=== PATIENT | male | born 1985 | race Caucasian/White ===

== ENCOUNTER 2019-08-03 09:15 | Emergency (ER) | payer SELFPAY ==
[~2019-08-03] VITALS: Ht 175 cm; Wt 84.0 kg
[2019-08-03 09:20] VITALS: BP 143/94
--- OUTSIDE RECORDS SUMMARY | 2019-08-03 09:21 | XMS REPORT | Continuity of Care Document ---
Author Organization Unknown Address Unknown Phone Unavailable Allergies Active Description Code Type Severity Reaction Onset Reported/Identified Relationship to Patient Clinical Status Yes NO KNOWN DRUG ALLERGIES UNKNOWN NO KNOWN DRUG ALLERG Medications Medication Packaging Start Date St op Date Route Dosage Sig KETOROLAC VIAL INJ 30 MG/CC (TORADOL VIAL) MG 08/31/2018 08/31/2018 ONCE&2130 ORPHENADRINE INJ 60 MG/2CC (NORFLEX) MG 08/31/2018 08/31/2018 ONCE&2130 Problems There is no data. Procedures There is no data. Results There is no data. Encounters ACCT No. Visit Date/Time Discharge Status Pt. Type Provider Facility Loc./Unit Complaint [id number] 08/31/2018 20:52:00 08/31/2018 21:46: 00 DIS Outpatient Beatriz Dillon [facility] ER [id number] 08/31/2018 21:40:14 Document Registration [id number] 12/31/2018 07:10:00 12/31/2018 23:59: 59 [facility] Outpatient [facility]
--- NOTE | 2019-08-03 09:28 | ED Upper Extremity ---
General Chief Complaint: Upper Extremity Stated Complaint: FINGER INJ Source: patient Exam Limitations: no limitations History of Present Illness Date Seen by Provider: Aug 03, 2019 Time Seen by Provider: 09:12 Initial Comments Patient presents ER by private conveyance from home with chief complaint yesterday he was working on a tire mounting machine and a steel bar came across the dorsum of the intermediate phalanx of the fourth digit of his right hand. He had swelling, pain and limited range of motion to extension and flexion secondary to pain. He also noted increased horizontal laxity between his medial and proximal phalanx compared to his other joints after the injury. No previous injuries to his hand. No significant medical history. He took Tylenol for the pain as well as ice. He has not lost sensation in his finger. No other injury. Allergies and Home Medications Patient Home Medication List Home Medication List Reviewed: Yes Review of Systems Constitutional: No chills, No fever EENTM: No ear discharge, No ear pain Respiratory: No cough, No short of breath Cardiovascular: No chest pain, No edema Gastrointestinal: No abdominal pain, No nausea All Other Systems Reviewed Negative Unless Noted: Yes Past Cnjtsbd-Naqdzt-Arhonl Hx Patient Social History Alcohol Use: Denies Use Recreational Drug Use: No Smoking Status: Current Everyday Smoker Type Used: Cigarettes Past Medical History Surgeries: Yes (cyst) Respiratory: No Cardiac: No Neurological: No Genitourinary: No Gastrointestinal: No Musculoskeletal: No Endocrine: No HEENT: No Cancer: No Psychosocial: No Blood Disorders: No Physical Exam Vital Signs Capillary Refill : Height, Weight, BMI Height: '" Weight: lbs. oz. kg; BMI Method: General Appearance: WD/WN, no apparent distress HEENT: PERRL/EOMI, pharynx normal Cardiovascular: normal peripheral pulses, regular rate, rhythm, other (brisk capillary refill less than 3 seconds) Respiratory: no respiratory distress, no accessory muscle use Elbow/Forearm: normal inspection, non-tender, no evidence of injury, normal ROM, Right Wrist: Yes normal inspection, Yes non-tender, Yes no evidence of injury, Yes normal ROM Hand: Right, bone tenderness, ecchymosis, limited ROM (distal phalanx flexor and extensor tendons are intact), soft tissue tenderness, stiffness, swelling Neurologic/Tendon: normal sensation, normal motor functions, normal tendon functions, no evidence tendon injury Neurologic/Psychiatric: alert, oriented x 3 Skin: warm/dry, ecchymosis Progress/Results/Core Measures Results/Orders My Orders Orders - CONNOR DANG Finger(S) (08/03/19 09:21) Progress Progress Note : Time: 09:25 Progress Note Plain films of the right fingers looking for fracture. Tendon insertion seem to be intact although his range of motion is limited due to swelling and pain. Diagnostic Imaging Diagonstic Imaging: Xray Plain Films/CT/US/NM/MRI: hand Comments Right hand fourth digit medial phalanx fracture of the proximal diaphysis not through the joint space. Closed with minimal to moderate anterior displacement. Departure Impression Primary Impression: Finger fracture, right Qualified Codes: S62.624A - Displaced fracture of middle phalanx of right ring finger, initial encounter for closed fracture Disposition: HOME, SELF-CARE Condition: Stable Departure-Patient Inst. Decision time for Depature: 09:34 Referrals: SONYA STROUD,LOCAL PHYSICIAN (PCP) Primary Care Physician Patient Instructions: Finger Fracture (DC) Add. Discharge Instructions: Bo tape your finger to the adjoining finger for splinting and reduced pain. Apply ice for 20 minutes every 4 hours for the first 1-2 days. Tylenol 1000 mg every 8 hours as needed for pain. Ibuprofen 800 mg every 8 hours as needed for pain. Elevate the finger above the level of your heart if you are experiencing swelling, increased pain or tingling. Follow-up with primary care or the hand surgeon, Dr. Stroud if you're still experiencing difficulty moving your fingers after one to 2 weeks. All discharge instructions reviewed with patient and/or family. Voiced understanding. Work/School Note: Work Release Form Date Seen in the Emergency Department: Aug 03, 2019 Return to Work: Aug 03, 2019 Restrictions: Need Release from Doctor Other Restrictions Listed Below: Light duty with right hand until 08/18/19. CONNOR DANG Aug 03, 2019 09:28
--- NOTE | 2019-08-03 09:37 | Diagnostic Imaging Report ---
INDICATION: Smashed right 4th finger. Time of exam 9:26 AM 3 views of the right 4th finger were obtained. There is a comminuted fracture involving the proximal aspect of the middle phalanx of the 4th finger. There is volar displacement of the distal fracture fragment. No definite angulation is seen. No definite involvement of the articular surface of the PIP joint is seen. There is overlying soft tissue swelling. Proximal and distal phalanx are intact. IMPRESSION: Displaced fracture involving the proximal aspect middle phalanx, 4th finger. Dictated by: Dictated on workstation # [id number]
== END 2019-08-03 09:38 | disposition home or self-care (01) ==
LOC: EDUNIT# 09:15 → ER FS 09:17
DX: S62.624A Displaced fracture of middle phalanx of right ring finger, initial encounter for closed fracture (principal); F17.210 Nicotine dependence, cigarettes, uncomplicated; W22.8XXA Striking against or struck by other objects, initial encounter
CPT/HCPCS: 73140; 99282

== ENCOUNTER 2020-09-22 10:24 | Emergency (ER) | payer OTHER ==
[~2020-09-22] VITALS: Ht 175.3 cm; Wt 85.0 kg
[2020-09-22] MEDS ORDERED: LIDOCAINE 1% INJ 20 ML 20 ML VIAL ONE (10:37)
[2020-09-22] MEDS ORDERED: LIDOCAINE 1% INJ 20 ML 20 ML VIAL INJ STA (10:42)
--- NOTE | 2020-09-22 10:44 | ED Head Injury ---
General Chief Complaint: Laceration Stated Complaint: WC HEAD LAC Nursing Triage Note: Patient reports he was flipping breakers on a panel at work when the panel "blew up" and the panel cover flew off and hit him in the forehead. He denies any loss of consiousness, laceration present to right side of forehead. Source: patient History of Present Illness Date Seen by Provider: Sep 22, 2020 Time Seen by Provider: 10:26 Initial Comments 35 yo male presents with laceration to forehead after getting hit in forehead with panel cover while working. He was flipping breakers on a panel and states he heard something pop and then saw a flash and the panel cover "blew up" and he felt it hit his forehead. The next thing he knows he was on the ground and had blood on his forehead/face. He denies loss of consciousness. He denies other injuries. He does not remember when he last had a tetanus booster. He has no change in vision, nausea, vomiting, neck pain, numbness, weakness. Occurred: just prior to arrival Severity: mild Location: other (forehead) Method of Injury: direct blow Loss of Consciousness: no loss of consciousness Associated Systoms: No Chest Pain, No Cough, No Diaphoresis, No Fever/Chills, No Loss of Appetite, No Malaise, No Nausea/Vomiting, No Seizure, No Shortness of Air, No Syncope, No Weakness Allergies and Home Medications Allergies Coded Allergies: No Known Drug Allergies (Unverified , 08/03/19) Home Medications No Active Prescriptions or Reported Meds Patient Home Medication List Home Medication List Reviewed: Yes Review of Systems Review of Systems Constitutional: No chills, No fever Eyes: Denies Blindness, Denies Blurred Vision, Denies Photophobia, Denies Vision Changes Ears, Nose, Mouth, Throat: no symptoms reported Respiratory: no symptoms reported Cardiovascular: no symptoms reported Gastrointestinal: No nausea, No vomiting Genitourinary: no symptoms reported Musculoskeletal: no symptoms reported Skin: see HPI Psychiatric/Neurological: See HPI Hematologic/Lymphatic: Denies Blood Clots, Denies Easy Bleeding, Denies Easy Bruising Past Mgyvvif-Mnzzii-Twfikr Hx Past Med/Social Hx: Reviewed Nursing Past Med/Soc Hx Patient Social History Type Used: Cigarettes Recent Infectious Disease Expo: No Past Medical History Surgeries: Yes (cyst) Respiratory: No Cardiac: No Neurological: No Genitourinary: No Gastrointestinal: No Musculoskeletal: No Endocrine: No HEENT: No Cancer: No Psychosocial: No Blood Disorders: No Physical Exam Vital Signs Vital Signs - First Documented 09/22/20 10:28 Temp 36.4 Pulse 66 Resp 16 B/P (MAP) 135/86 (102) Pulse Ox 96 O2 Delivery Room Air Capillary Refill : Less Than 3 Seconds Height, Weight, BMI Height: '" Weight: lbs. oz. kg; 27.00 BMI Method: General Appearance: WD/WN, no apparent distress HEENT: PERRL/EOMI, normal ENT inspection, TMs normal, pharynx normal, other (negative dobbs sign, raccoon sign. No CSF otorrhea, rhinorrhea. Laceration to mid forehead. bleeding controlled) Neck: non-tender, full range of motion, supple, normal inspection Cardiovascular: normal peripheral pulses, regular rate, rhythm Respiratory: chest non-tender, lungs clear, normal breath sounds Gastrointestinal: normal bowel sounds, non tender, soft, no pulsatile mass Extremities: normal range of motion, non-tender, normal capillary refill Psychiatric: alert, oriented x 3 Cra[place] Nerves: normal hearing, normal speech, PERRL Motor/Sensory: no motor deficit, no sensory deficit Skin: normal color, warm/dry, other (laceration to mid forehead) Jazmine Coma Score Best Eye Response: (4) Open Spontaneously Best Verbal Response: (5) Oriented Best Motor Response: (6) Obeys Commands [place] Total: 15 Images 1 - 2.8 cm laceration to forehead Procedures/Interventions Wound Location: Face (mid forehead) Wound Length (cm): 2.8 Wound's Depth, Shape: linear, sub Q Wound Explored: clean Betadine Prep?: Yes Anesthesia: 1% Lidocaine Volume Anesthetic (ccs): 8 Suture: Ethlion Suture Size: 5-0 Number of Sutures: 7 Layer Closure?: 1 Sterile Dressing Applied?: Yes Progress After obtaining verbal consent from patient the wound was anesthetized with 1% plain lidocaine. A total of 8 mL of lidocaine were used. Then using Betadine prep and sterile water the wound was scrubbed and cleaned. There is no foreign body seen. The wound edges were approximated using 5-0 Ethilon and a total of 7 simple interrupted stitches. The wound edges were well approximated patient t olerated procedure well without any immediate complication. Counseled on management of wound as well as follow-up and return cautions. Progress/Results/Core Measures Results/Orders My Orders Orders - MARICRUZ BEAN MD Dipht,Pertnorberto(Acell),Tet Adult (Boostrix (09/22/20 10:45) Lidocaine 1% Inj 20 Ml (Xylocaine 1% Inj (09/22/20 10:42) Suture Set At Bedside (09/22/20 10:42) Wound Dressing-Ed (09/22/20 10:42) Ice: Apply To Affected Area (09/22/20 11:51) Medications Given in ED Current Medications Medications Dose Ordered Sig/Tl Route Start Time Stop Time Status Last Admin Dose Admin Diphtheria/ Tetanus/Acell Pertussis 0.5 ml ONCE ONCE IM 09/22/20 10:45 09/22/20 10:46 DC 09/22/20 10:45 0.5 ML Vital Signs/I&O 09/22/20 09/22/20 10:28 11:51 Temp 36.4 Pulse 66 88 Resp 16 16 B/P (MAP) 135/86 (102) 133/81 Pulse Ox 96 97 O2 Delivery Room Air Room Air Blood Pressure Mean: 102 Progress Progress Note : Progress Note update tetanus and repair laceration. stitches out in 7 days. Counseled on follow up and return precautions Departure Impression Primary Impression: Laceration of forehead without complication Qualified Codes: S01.81XA - Laceration without foreign body of other part of head, initial encounter Disposition: 01 HOME, SELF-CARE Condition: Stable Departure-Patient Inst. Decision time for Depature: 11:44 Referrals: NO,LOCAL PHYSICIAN (PCP/Family) Primary Care Physician Patient Instructions: Laceration Repair With Stitches ED, Wound Care ED Add. Discharge Instructions: Keep wound clean and dry for first 24 hours. Then may wash with soap and water and apply antibiotic ointment and a clean dry dressing. Keep wound covered with clean dressing when it might get dirty, such as at work. May apply antibiotic ointment 2 times a day as needed to help with healing and prevent infection. Stitches should be removed next SundaySeptember 29. Be seen sooner if having concerns for infection such as redness streaking across forehead, pus draining from wound, fever over 101 F. Try to sleep with your head elevated for next couple of nights. this will help limit swelling and bleeding overnight. Ice 20-30 minutes 2-3 times a day to help with swelling and bruising. May take Acetaminophen or Ibuprofen if needed for pain. All discharge instructions reviewed with patient and/or family. Voiced understanding. Scripts No Active Prescriptions or Reported Meds MARICRUZ BEAN MD Sep 22, 2020 10:44
[2020-09-22] MEDS ORDERED: TETANUS,DIPTH,PERTUSS P/F (BOOSTRIX) 0.5 ML VIAL IM ONE (10:45)
[2020-09-22 11:51] VITALS: BP 133/81
== END 2020-09-22 12:05 | disposition home or self-care (01) ==
LOC: EDUNIT# 10:24 → ER FS 10:26
DX: S01.81XA Laceration without foreign body of other part of head, initial encounter (principal); R40.2410 Glasgow coma scale score 13-15, unspecified time; W22.8XXA Striking against or struck by other objects, initial encounter
CPT/HCPCS: 90715; 99284

== ENCOUNTER 2021-11-24 21:13 | Emergency (ER) | payer SELFPAY ==
[~2021-11-24] VITALS: Ht 175.2 cm; Wt 77.1 kg
[2021-11-24 21:41] VITALS: BP 131/74
--- NOTE | 2021-11-24 22:03 | ED Lower Extremity ---
General Chief Complaint: Lower Extremity Stated Complaint: L KNEE PAIN Nursing Triage Note: Pt reports hearing a pop in [place] [employer] [place]. He reports increased pain and swelling throughout the day. History of Present Illness Date Seen by Provider: Nov 24, 2021 Time Seen by Provider: 21:47 Initial Comments 36-year-old male is here with complaints of left knee pain after he fell and heard a pop when he was at the trampoline park today. Patient is unable to bear weight on it and has pain. Minimal swelling. Denies sensory loss, head strike or LOC. Allergies and Home Medications Allergies Coded Allergies: No Known Drug Allergies (Unverified , 08/03/19) Patient Home Medication List Home Medication List Reviewed: Yes No Active Prescriptions or Reported Meds Review of Systems Constitutional: no symptoms reported EENTM: no symptoms reported Respiratory: no symptoms reported Cardiovascular: no symptoms reported Gastrointestinal: no symptoms reported Genitourinary: no symptoms reported Musculoskeletal: joint pain, joint swelling Skin: no symptoms reported Psychiatric/Neurological: No Symptoms Reported Past Bxhazsq-Cutvhb-Daoikt Hx Past Medical History Surgeries: Yes (cyst) Respiratory: No Cardiac: No Neurological: No Genitourinary: No Gastrointestinal: No Musculoskeletal: No Endocrine: No HEENT: No Cancer: No Psychosocial: No Integumentary: No Blood Disorders: No Physical Exam Vital Signs Vital Signs - First Documented 11/24/21 21:41 Temp 37.1 Pulse 81 Resp 18 B/P (MAP) 131/74 (93) Capillary Refill : Less Than 3 Seconds Height, Weight, BMI Height: '" Weight: lbs. oz. kg; 25.00 BMI Method: General Appearance: WD/WN, no apparent distress HEENT: PERRL/EOMI Neck: non-tender, full range of motion, supple, normal inspection Knees: left knee pain, left knee soft tissue tenderness (no swelling seen), left knee other Ankles: left ankle non-tender, left ankle normal inspection, left ankle normal range of motion, left ankle no evidence of injury Neurologic/Tendon: normal sensation, normal motor functions, normal tendon functions Neurologic/Psychiatric: alert, normal mood/affect, oriented x 3 Skin: normal color Procedures/Interventions Suture Size: 5-0 Progress/Results/Core Measures Results/Orders My Orders Orders - KAROLYN JOSHI MD Knee 3 View Left (11/24/21 21:53) Vital Signs/I&O 11/24/21 21:41 Temp 37.1 Pulse 81 Resp 18 B/P (MAP) 131/74 (93) Blood Pressure Mean: 93 Progress Progress Note : Progress Note 1. LEFT KNEE SPRAIN: - XR LEFT KNEE: no fracture or dislocation - Ibuprofen as needed for pain, ice - Crutches/ Knee brace - Follow up with Ortho within 3 to 7 days -The patient was seen in the ED, and treated appropriately to presentation at a specific point in time. Patient is informed that there is a possibility that disease and illness can evolve and change in acuity rapidly or slowly after patient is discharged from the ER. Precautionary advice given to the patient for immediate return to ER if symptoms worsen or do not resolve, and to seek emergency care sooner rather than later. Pt also advised on the importance of PCP follow up and compliance with management and follow up plan with PCP and/or specialist, as this is part of the management plan. Pt verbally expressed understanding. Diagnostic Imaging Diagonstic Imaging: Xray Plain Films/CT/US/NM/MRI: knee Reviewed: Reviewed by Me Departure Impression Primary Impression: Left knee sprain Qualified Codes: S83.92XA - Sprain of unspecified site of left knee, initial encounter Disposition: HOME, SELF-CARE Condition: Stable Departure-Patient Inst. Referrals: NO,LOCAL PHYSICIAN (PCP) Primary Care Physician NEETU CHAHAL MD Patient Instructions: Knee Sprain (DC) Add. Discharge Instructions: - Ibuprofen as needed for pain, ice - Crutches/ Knee brace - Follow up with Ortho within 3 to 7 days, Dr Chahal: Call for appointment: Office number: [phone] All discharge instructions reviewed with patient and/or family. Voiced understanding. Scripts No Active Prescriptions or Reported Meds Work/School Note: Work Release Form Date Seen in the Emergency Department: Nov 24, 2021 Return to Work: Dec 01, 2021 Restrictions: Need Release from Doctor KAROLYN JOSHI MD Nov 24, 2021 22:03
--- NOTE | 2021-11-24 22:45 | Diagnostic Imaging Report ---
INDICATION: Knee injury COMPARISON: None. FINDINGS: 3 views of the left knee joint demonstrate no acute fracture or dislocation. No focal osseous lesion is seen. The surrounding soft tissue structures are unremarkable. There is no radiopaque foreign body. IMPRESSION: No acute fracture or dislocation of the left knee joint. Dictated by: Dictated on workstation # [id number]
== END 2021-11-24 23:06 | disposition home or self-care (01) ==
LOC: EDUNIT# 21:13 → ER FS 21:14
DX: S83.92XA Sprain of unspecified site of left knee, initial encounter (principal); W17.89XA Other fall from one level to another, initial encounter; Y92.830 Public park as the place of occurrence of the external cause
CPT/HCPCS: 73562; 99282; L1830

== ENCOUNTER → 2021-11-29 | Outpatient (CLI) | payer SELFPAY | LOC: ORTHO 16:29 | PROVIDERS: ATTEND Orthopaedic Surgery | DX: S83.412A Sprain of medial collateral ligament of left knee, initial encounter (principal); X58.XXXA Exposure to other specified factors, initial encounter | CPT/HCPCS: 99202 ==

== ENCOUNTER 2022-02-28 20:18 | Emergency (ER) | payer OTHER ==
[~2022-02-28] VITALS: Ht 175.2 cm; Wt 82.0 kg
--- NOTE | 2022-02-28 20:38 | ED EENT ---
History of Present Illness General Stated Complaint: R EAR HEARING LOSS Source: patient History of Present Illness Date Seen by Provider: Feb 28, 2022 Time Seen by Provider: 20:19 Initial Comments 36-year-old male presenting with complaints of decreased hearing from the right ear. He had been shooting to make sure his sights were good on his rifle. He had been shooting multiple times during the day. When he got back home he noticed he could not barely hear from his right side. He has had no bleeding or drainage. He did not wear any ear or sound protection. Timing/Duration: gradual Severity: severe Location: ear (R) Prearrival Treatment: no prearrival treatment Modifying Factors: Improves With Other (gunshots) Associated Symptoms: change in hearing; No cough, No drooling, No ear drainage, No facial pain/swelling, No fever, No malaise, No nasal congestion/drainage, No poor fluid intake, No poor solids intake, No sinus infection, No sore throat, No tooth pain, No voice change Allergies and Home Medications Allergies Coded Allergies: No Known Drug Allergies (Unverified , 08/03/19) Patient Home Medication List Home Medication List Reviewed: Yes No Active Prescriptions or Reported Meds Review of Systems Review of Systems Constitutional: No chills, No fever Eyes: No Symptoms Reported Ears: See HPI; Denies Bloody Discharge, Denies Clear Discharge, Denies Purulent Discharge Nose: no symptoms reported Mouth: no symptoms reported Throat: no symptoms reported Respiratory: no symptoms reported Cardiovascular: no symptoms reported Gastrointestinal: no symptoms reported Musculoskeletal: no symptoms reported Skin: no symptoms reported Past Xwngdnr-Bihiit-Qzejdz Hx Patient Social History Tobacco Use?: Yes Tobacco type used: Cigarettes Substance use?: Yes Substance type: Marijuana Alcohol Use?: Yes Alcohol type: Hard Liquor Past Medical History Surgeries: Yes (cyst) Respiratory: No Cardiac: No Neurological: No Genitourinary: No Gastrointestinal: No Musculoskeletal: No Endocrine: No HEENT: No Cancer: No Psychosocial: No Integumentary: No Blood Disorders: No Physical Exam Height, Weight, BMI Height: '" Weight: lbs. oz. kg; 25.00 BMI Method: General Appearance: WD/WN, no apparent distress Eyes: bilateral eye PERRL, bilateral eye EOMI Ears: right ear TM dull, right ear TM red (hemotympanum with swelling from barotrauma of shooting guns today. no perforation), right ear TM bulging Neurologic/Psychiatric: alert, oriented x 3 Skin: normal color, warm/dry Procedures/Interventions Suture Size: 5-0 Progress/Results/Core Measures Progress Progress Note : Progress Note Counseled patient on treatment of barotrauma and hearing loss. Advised that until his eardrum heals it will be hard to say how much permanent hearing loss he might have. Encouraged to get ear protection for future shooting. Given information for Dr. Faulkner with ENT if not improving or if worsening. Also given information for [facility] for routine care. Departure Impression Primary Impression: Otitic barotrauma, initial encounter Disposition: HOME, SELF-CARE Condition: Stable Departure-Patient Inst. Decision time for Depature: 20:37 Referrals: NEETU FAULKNER MD NO,LOCAL PHYSICIAN (PCP) [place] Phys[place] [facility] [place]ructions: Hearing Loss in Adults Add. Discharge Instructions: From shooting your rifle without appropriate ear and sound protection you have caused trauma to your eardrum. There is swelling and bleeding in the eardrum that is making it difficult for you to hear. This will heal with time. You may need to have testing to see what degree of hearing loss is permanent from today's injury. Follow up with clinic and ENT, Dr. Faulkner, if not improving or having worsening symptoms. Take Acetaminophen and/or Ibuprofen to help with pain Make sure to invest in appropriate ear and sound protection to protect from further damage to your eardrums and hearing. Scripts No Active Prescriptions or Reported Meds MARICRUZ BEAN MD Feb 28, 2022 20:38
[2022-02-28 20:44] VITALS: BP 145/98
== END 2022-02-28 20:44 | disposition home or self-care (01) ==
LOC: EDUNIT# 20:18 → ER FS 20:20
DX: T70.0XXA Otitic barotrauma, initial encounter (principal); F17.210 Nicotine dependence, cigarettes, uncomplicated
CPT/HCPCS: 99282

== ENCOUNTER 2022-05-17 21:22 | Emergency (ER) | payer BC ==
[~2022-05-17] VITALS: Ht 175.2 cm; Wt 82.0 kg
[2022-05-17 21:25] VITALS: BP 129/83
--- NOTE | 2022-05-17 21:38 | ED Cough/URI ---
General Stated Complaint: COUGH,FEVER Source: patient History of Present Illness Date Seen by Provider: May 17, 2022 Time Seen by Provider: 21:26 Initial Comments 37-year-old male presenting with complaints of 1 week of cough and fever. He states his temperature got up to 100.6. He has had a dry cough. He does use a vape but denies smoking cigarettes. He occasionally smokes marijuana. He had been around his nephew who was positive for COVID before he started having symptoms. Since he continues to have body aches and cough with fever he came in to be evaluated for possible COVID and to get checked if he needed to be in quarantine or stay home from work. He last took Tylenol 1 g around 6 PM. He denies having nausea, vomiting, abdominal pain, nasal drainage, ear pain, headache, pain with urination, diarrhea. He complains of generalized body aches Timing/Duration: week Severity/Quality: moderate, dry cough Prior Episodes/Possible Cause: no prior episodes Modifying Factors: Worse With Activity Associated Symptoms: cough, fever/chills, nasal drainage, sore throat (from coughing) Allergies and Home Medications Allergies Coded Allergies: No Known Drug Allergies (Unverified , 08/03/19) Patient Home Medication List Home Medication List Reviewed: Yes No Active Prescriptions or Reported Meds Review of Systems Review of Systems Constitutional: chills, fever EENTM: see HPI Respiratory: see HPI Cardiovascular: no symptoms reported Gastrointestinal: no symptoms reported Genitourinary: no symptoms reported Musculoskeletal: see HPI Skin: No rash Psychiatric/Neurological: No Symptoms Reported Hematologic/Lymphatic: No Symptoms Reported Past Fbzcpac-Qselge-Xqwksi Hx Patient Social History Tobacco Use?: No Use of E-Cig and/or Vaping dev: Yes E-Cig or Vaping type used: Nicotine Substance use?: Yes Substance type: Marijuana Alcohol Use?: No Immunizations Up To Date First/Initial COVID19 Vaccinat: 02/2021 Second COVID19 Vaccination Jaycob: 04/2021 Past Medical History Surgery/Hospitalization HX: Denies Surgeries: Yes (cyst) Respiratory: No Cardiac: No Neurological: No Genitourinary: No Gastrointestinal: No Musculoskeletal: No Endocrine: No HEENT: No Cancer: No Psychosocial: No Integumentary: No Blood Disorders: No Physical Exam Vital Signs - First Documented 05/17/22 21:25 Temp 36.8 Pulse 85 Resp 16 B/P (MAP) 129/83 (98) Pulse Ox 98 O2 Delivery Room Air Capillary Refill : Height: '" Weight: lbs. oz. kg; 26.00 BMI Method: General Appearance: WD/WN, no apparent distress HEENT: PERRL/EOMI, normal ENT inspection, TMs normal; No photophobia; pharyngeal erythema (mild without exudate) Neck: non-tender, full range of motion, supple Respiratory: chest non-tender, lungs clear, normal breath sounds, no respiratory distress, no accessory muscle use Cardiovascular: normal peripheral pulses, regular rate, rhythm Gastrointestinal: normal bowel sounds, non tender, soft, no pulsatile mass Extremities: normal range of motion, non-tender, normal capillary refill Neurologic/Psychiatric: alert, oriented x 3 Skin: normal color, warm/dry Procedures/Interventions Suture Size: 5-0 Progress/Results/Core Measures Suspected Sepsis SIRS Temperature: Pulse: Respiratory Rate: Blood Pressure / Mean: Results/Orders Lab Results Laboratory Tests Test 05/17/22 21:34 Range/Units Influenza Type A (RT-PCR) Not Detected Not Detecte Influenza Type B (RT-PCR) Not Detected Not Detecte SARS-CoV-2 RNA (RT-PCR) Detected H Not Detecte My Orders Orders - MARICRUZ BEAN MD Covid 19 Inhouse Test (05/17/22 21:31) Chest 1 View Ap/Pa Only (05/17/22 21:31) Influenza A And B By Pcr (05/17/22 21:31) Isolation Central Supply Req (05/17/22 21:31) Vital Signs/I&O 05/17/22 21:25 Temp 36.8 Pulse 85 Resp 16 B/P (MAP) 129/83 (98) Pulse Ox 98 O2 Delivery Room Air Capillary Refill : Progress Note #1: Progress Note With exposure to COVID he certainly could have that has his diagnosis tonight. Since he has had symptoms for a week he would be outside of the quarantine window but should be wearing a mask. We will obtain a nasal swab to check for influenza and COVID. Chest x-ray to look for signs of infiltrate or pneumonia. Progress Note #2: Progress Note Nasal swab for COVID and influenza was negative for the influenza part but po sitive for COVID. Has 1 view chest x-ray on my personal interpretation and reviewed did not show any acute infiltrate or effusion. Reassured patient and treat symptomatically. Given a note for work about quarantine and isolation to cover him until he has resolution of his symptoms. Encouraged to establish care and follow-up through the clinic for continued concerns. Diagnostic Imaging Diagonstic Imaging: Xray Plain Films/CT/US/NM/MRI: chest Comments [facility]. [place], [place] NAME: LEO KIRKPATRICK [facility] REC#: [id number] PT STATUS: REG ER : 1985 PHYSICIAN: MARICRUZ BEAN MD ADMIT DATE: 05/17/22/ER FS Signed Date of Exam:05/17/22 CHEST 1 VIEW AP/PA ONLY INDICATION: Cough and fever. FINDINGS: The heart size, mediastinal configuration, and pulmonary vascularity are within normal limits. There is no pleural effusion, pneumothorax or pneumonia. The osseous structures are unremarkable. IMPRESSION: No acute cardiopulmonary abnormality. Dictated by: Dictated on workstation # [id number] Dict: 05/17/222155 Trans: 05/17/222157 PJE [id number] Interpreted by: PARVEEN HDEZ MD Electronically signed by: PARVEEN HDEZ MD 05/17/222157 Reviewed: Reviewed by Me Departure Impression Primary Impression: Upper respiratory tract infection due to COVID-19 virus Additional Impressions: Upper respiratory infection with cough and congestion Fever in adult Disposition: 01 HOME, SELF-CARE Condition: Stable Departure-Patient Inst. Decision time for Depature: 22:20 Referrals: NO,LOCAL PHYSICIAN (PCP) Primary Care Physician [facility] Patient Instructions: COVID-19 After You Have Been Vaccinated, COVID-19 ED Add. Discharge Instructions: You should continue to wear a mask and isolate from others until you are fever free for 24 hours without having to take Acetaminophen or Ibuprofen to treat for fever. You have had symptoms for 7 days so you should be on the down hill side of the symptoms since it is usually 7 to 10 days. Check back with clinic if having continued symptoms. You can call [facility] clinic at [phone] to get established for care. Use Acetaminophen and Ibuprofen to treat fever and body aches. Stay well hydrated and drink plenty of fluids. Scripts No Active Prescriptions or Reported Meds Work/School Note: Work Release Form Date Seen in the Emergency Department: May 17, 2022 Return to Work: May 22, 2022 Restrictions: Return-No Fever (24hrs) Other Restrictions Listed Below: Isolate and Quarantine until fever free for 24 hours without medicines MARICRUZ BEAN MD May 17, 2022 21:37
--- NOTE | 2022-05-17 21:57 | Diagnostic Imaging Report ---
INDICATION: Cough and fever. FINDINGS: The heart size, mediastinal configuration, and pulmonary vascularity are within normal limits. There is no pleural effusion, pneumothorax or pneumonia. The osseous structures are unremarkable. IMPRESSION: No acute cardiopulmonary abnormality. Dictated by: Dictated on workstation # [id number]
== END 2022-05-17 22:30 | disposition home or self-care (01) ==
LOC: EDUNIT# 21:22 → ER FS 21:24
DX: U07.1 COVID-19 (principal); R50.9 Fever, unspecified; R05.9 Cough, unspecified; R09.81 Nasal congestion; J06.9 Acute upper respiratory infection, unspecified; F17.290 Nicotine dependence, other tobacco product, uncomplicated
CPT/HCPCS: 71045; 87636

== ENCOUNTER 2022-08-07 00:09 | Emergency (ER) | payer BC ==
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
[2022-08-07] MEDS ORDERED: KETOROLAC 30 MG/ML VIAL ONE (01:10)
[2022-08-07 01:15] VITALS: BP 144/98
[2022-08-07] MEDS ORDERED: KETOROLAC 30 MG/ML VIAL IM ONE (01:15)
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
== END 2022-08-07 01:16 | disposition home or self-care (01) ==
LOC: EDUNIT# 00:09 → ER FS 00:13
DX: S06.0X0A Concussion without loss of consciousness, initial encounter (principal); S01.01XA Laceration without foreign body of scalp, initial encounter; Y04.8XXA Assault by other bodily force, initial encounter
CPT/HCPCS: 70450; 70486